=== PATIENT | male | born 1960 | race Caucasian/White ===

== ENCOUNTER → 2017-07-07 | Day surgery (SDC) | payer BC ==
[2017-07-06 11:18] LABS: Urine RBC None Seen /hpf (0 - 3)
[2017-07-06 11:24] LABS: Basophils # (auto) 0 uL; Basophils % (auto) 0.4 % (0.0-2.0); CONDITION Y; Eosinophils # (auto) 0.2 uL; Eosinophils % (auto) 2.2 % (0.0-7.0); Hematocrit 46.6 % (41.0-53.0); Hemoglobin 15.9 g/dL (13.5-17.5); Lymphocytes # (auto) 1.3 uL; Lymphocytes % (auto) 16.6 % (10.0-50.0); Mean Corpuscular Hemoglobin 31.8 pg (28.0-32.0); Mean Corpuscular Hgb Conc. 34.2 g/dL (32.0-36.0); Mean Corpuscular Volume 92.9 fL (80.0-100.0); Mean Platelet Volume 7.1 fL (7.4-10.4); Monocytes # (auto) 0.6 uL; Monocytes % (auto) 7.8 % (0.0-12.0); Neutrophils # (auto) 5.8 uL; Platelet Count (auto) 327 10^3/uL (140-450); Red Cell Distribution Width 13.3 % (11.6-16.0)
[2017-07-06 11:45] LABS: INR 0.95 (0.9-1.15); Partial Thromboplastin Time 28.9 sec (22.64-33.71); Prothrombin Time 10.3 sec (9.37-12.3)
[2017-07-06 11:55] LABS: Albumin 4.3 g/dL (3.4-5.0); BUN/Creatinine Ratio 20.4; Calcium 9.7 mg/dL (8.5-10.1); Potassium 4.3 mmol/L (3.5-5.1)
[2017-07-06 11:58] LABS: Bilirubin, Total 0.7 mg/dL (0.2-1.0)
[2017-07-06 12:08] LABS: Urine Bilirubin Negative (Negative); Urine Blood Negative /uL (Negative); Urine Color Yellow (Yellow); Urine Glucose Normal (Normal); Urine Ketone Negative (Negative); Urine Nitrite Negative (Negative); Urine Squamous Epithelial Cell FEW /hpf (<5); Urine Urobilinogen Normal (Negative); Urine pH 5.5 (5.0-8.0)
[~2017-07-07] VITALS: Ht 188 cm; Wt 104.3 kg
[~2017-07-07] MED LIST: AMLO5TAB2 PO; ATOR20TA50 PO; BUPIVACAINE 0.75% INJ 10ML MPV SDV IJ ONE; KETOROLAC TROMETH 30 MG/ML 1ML VIAL IV ONE; METO50TA7 PO; METOCLOPRAMIDE HCL 5MG/ml INJ 2ml VIAL IV ONE; MIDAZOLAM HCL 1MG/1ML-2 ML VIAL ONE; MORPHINE SULFATE INJECTION 1 ML ONE; ONDANSETRON HCL 4 MG/2 ML VIAL IV ONE; PROPOFOL 10 MG/ML 20 ML IV ONE; ceFAZolin 1GM VL ONE; ceFAZolin 1GM/50ML D5W 50 ML IV ONE; fentaNYL CITRATE 100 MCG/2 ML VL IV ONE; methylPREDNISolone ACETATE 80 MG/ML VL ONE
[2017-07-07 14:39] VITALS: BP 124/81
== END | disposition home or self-care (01) ==
LOC: SUR 10:32
PROVIDERS: ATTEND Podiatrist Foot & Ankle Surgery
DX: L60.2 Onychogryphosis (principal); Z95.0 Presence of cardiac pacemaker; I10 Essential (primary) hypertension; I49.5 Sick sinus syndrome; E78.00 Pure hypercholesterolemia, unspecified; M19.90 Unspecified osteoarthritis, unspecified site
CPT/HCPCS: 11750; 36415; 80053; 81001; 85025; 85610; 85730; J0690; J2250; J2270; J2704; J3490